=== PATIENT | female | born 1970 | race Caucasian/White ===

== ENCOUNTER 2019-02-13 22:01 | Emergency (ER) | payer BC, OTHER ==
[~2019-02-13] VITALS: Ht 162.6 cm; Wt 92.5 kg
--- OUTSIDE RECORDS SUMMARY | 2019-02-13 22:07 | XMS REPORT | Continuity of Care Document ---
Author Organization Unknown Address Unknown Phone Unavailable Allergies There is no data. Medications There is no data. Problems There is no data. Procedures There is no data. Results Test Result Range LIPID PANEL - 11/14/18 08:47 CHOLESTEROL, TOTAL 188 mg/dL <200 HDL CHOLESTEROL 73 mg/dL >50 TRIGLYCERIDES 114 mg/dL <150 LDL-CHOLESTEROL 94 mg/dL (calc) NRG CHOL/HDLC RATIO 2.6 (calc) <5.0 NON HDL CHOLESTEROL 115 mg/dL (calc) <130 CULTURE, THROAT - 11/20/18 18:26 CULTURE, THROAT SEE NOTE NRG Encounters ACCT No. Visit Date/Time Discharge Status Pt. Type Provider Facility Loc./Unit Complaint [id number] 01/19/2019 11:50:00 01/19/2019 23:59:59 [facility] Outpatient [facility] [id number] 11/20/2018 17:10:00 Document Registration [id number] 11/14/2018 08:30:00 Document Registration
--- OUTSIDE RECORDS SUMMARY | 2019-02-13 22:07 | XMS REPORT ---
Author Author INGE BEAULIEU [facility] Address [address] [place] [address] Care Team Providers Care Medication Administration Professional Name Role Phone INGE BEAULIEU Unavailable PROBLEMS Type Condition ICD9-CM Code [id number] Code Onset Dates Condition Status SNOMED Code Problem Osteoarthritis of left knee M17.12 Oct, 0 888582218 Problem Allergic rhinitis due to other allergen J30.89 0 13974230 Problem Tobacco use Z72.0 Mar, 0 464319806 Problem Esophageal reflux K21.9 0 072995901 Problem Headache R51 Active 84083171 Problem Osteoarthritis of right knee M17.11 Mar, 0 092363947 Problem Allergic rhinitis J30.9 Active 19666909 Problem Headache(784.0) R51 Jul, 0 46370463 Problem Environmental allergies Z91.09 Jul, 0 652113347 Problem Anxiety F41.9 Active 11106871 Problem Obesity (BMI 30.0-34.9) E66.9 Active [id number] Problem Obesity (BMI 30-39.9) E66.9 Active 082608666 ALLERGIES Substance Reaction Event Type Date Status Bactroban Stomach aches Non Drug Allergy Sep, Active Vicks itch Non Drug Allergy Sep, Active Loratab itch Non Drug Allergy Sep, Active wellbutrin confusion Non Drug Allergy Sep, Active penicillin itch Non Drug Allergy Sep, Active hydrocodone itch, vomiting Non Drug Allergy Sep, Active Codeine Unknown Non Drug Allergy Sep, Active ENCOUNTERS Encounter Location Date Diagnosis [facility] [address] [address] Dec, [facility] [address] [place] [address] 12 Dec, 2018 Tick bite, initial encounter W57.XXXA and UTI symptoms R39.9 [facility] IN [facility] [address] [facility] [address] November, Allergic rhinitis J30.9 and Exposure to Streptococcal ph[facility]itis Z20.818 [facility] [address] [place] [address] November, [facility] [address] [place] [address] November, Acute pain of right shoulder M25.511 [facility] [address] [place] [address] Oct, Acute pain of right shoulder M25.511 [facility] [address] [place] [address] Oct, [facility] [address] [place] [address] Oct, Acute URI J06.9 [facility] [address] [place] [address] Oct, [facility] [address] [place] [address] Sep, Obesity (BMI 30.0-34.9) E66.9 [facility] [address] [place] [address] Sep, Obesity (BMI 30.0-34.9) E66.9 [facility] [address] [place] [address] Sep, Acute URI J06.9 [facility] [address] [place] [place] [address] Sep, Sinusitis J32.9 ; Muscle spasm M62.838 and Middle ear effusion H65.90 [facility] [address] [facility] [id number], [place] [address] Jul, [facility] [address] [facility] [id number], [place] [address] Jul, [facility] [address] [id number], [place] [address] Jun, [facility] [address] [id number], [place] [address] Jun, Left lower quadrant pain R10.32 and Constipation, unspecified constipation type K59.00 [facility] [address] [facility] [id number], [place] [address] November, [facility] [address] [facility] [id number], [place] [address] Aug, IMMUNIZATIONS No Known Immunizations SOCIAL HISTORY Never Assessed REASON FOR VISIT congestion, sore throat and her chest hurts when she takes a deep breath. This started a couple of days ago.--PABLO Thakur PLAN OF CARE Activity Details Follow Up if not improving with PCP or reg follow up Reason: VITAL SIGNS Height 65 in 2018-09-21 Weight 217 lbs 2018-09-21 Temperature 98.1 degrees Fahrenheit 2018-09-21 Heart Rate 72 bpm 2018-09-21 Respiratory Rate 18 2018-09-21 BMI 36.11 kg/m2 2018-09-21 Blood pressure systolic 140 mmHg 2018-09-21 Blood pressure diastolic 90 mmHg 2018-09-21 MEDICATIONS Medication Instructions Dosage Frequency Start Date End Date Duration Status Doxycycline Hyclate 100 MG Orally Twice a day 1 capsule 12h Sep, 7 days Active Cyclobenzaprine HCl 10 MG Orally Three times a day as needed 1 tablet as needed Sep, 10 days Active PredniSONE 20 MG Orally BID 1 tablet 12h Sep, 5 days Active RESULTS No Results PROCEDURES No Known procedures INSTRUCTIONS MEDICATIONS ADMINISTERED No Known Medications MEDICAL (GENERAL) HISTORY Type Description Date Medical History Anxiety Medical History Environmental allergies Medical History Esophageal reflux Medical History Obesity (BMI 30-39.9) Medical History Headache Medical History Osteoarthritis of left knee Medical History Osteoarthritis of right knee Surgical History Hysterectomy 2006 Surgical History cholecystectomy 2002 Surgical History Left ankle ligament repair 1986 Surgical History Left knee repair 2008, 2012 Surgical History carpal tunnel Surgical History cyst in sinuses removed Hospitalization History surgeries Hospitalization History childbirth x3
--- OUTSIDE RECORDS SUMMARY | 2019-02-13 22:07 | XMS REPORT ---
Author Author CECILIA LANDRY [facility] Address [address] [place] [address] Care Team Providers Care Workforce Consultant Name Role Phone CECILIA LANDRY Unavailable PROBLEMS Type Condition ICD9-CM Code QIJ64-CE Code Onset Dates Condition Status SNOMED Code Problem Constipation, unspecified constipation type K59.00 Active 25700004 ALLERGIES Substance Reaction Event Type Date Status wellbutrin confusion Non Drug Allergy Jun, Active penicillin itch Non Drug Allergy Jun, Active hydrocodone itch, vomiting Non Drug Allergy Jun, Active Codeine Unknown Non Drug Allergy Jun, Active Bactroban Stomach aches Non Drug Allergy Jun, Active Vicks itch Non Drug Allergy Jun, Active Loratab itch Non Drug Allergy Jun, Active ENCOUNTERS Encounter Location Date Diagnosis [facility] [id number] [place] [address] Jun, Left lower quadrant pain R10.32 and Constipation, unspecified constipation type K59.00 IMMUNIZATIONS No Known Immunizations SOCIAL HISTORY Never Assessed REASON FOR VISIT Intermittent LLQ abdominal pain that radiates to the navel x 3 days. Pain rated a 10 at its worst. Pt was told several days ago she has a bowel blockage and b priti taking stool softener [facility]. [facility] PLAN OF CARE Activity Details Follow Up prn Reason: VITAL SIGNS Height 65 in 2018-07-02 Weight 203.2 lbs 2018-07-02 Temperature 97.5 degrees Fahrenheit 2018-07-02 Heart Rate 80 bpm 2018-07-02 Respiratory Rate 20 2018-07-02 BMI 33.81 kg/m2 2018-07-02 Blood pressure systolic 110 mmHg 2018-07-02 Blood pressure diastolic 74 mmHg 2018-07-02 MEDICATIONS Medication Instructions Dosage Frequency Start Date End Date Duration Status Metronidazole 500 MG Orally every 8 hrs 1 tablet 8h 10 day(s) Active Stool Softener Active Levofloxacin 750 MG Orally Once a day 1 tablet 24h 10 day(s) Active RESULTS Name Result Date Reference Range Xray : Abdomen 2v (Upright and KUB) - IN HOUSE 2018-07-02 PROCEDURES Procedure Date Ordered Result Body Site X-RAY EXAM ABDOMEN 2 VIEWS Jul 02, 2018 INSTRUCTIONS MEDICATIONS ADMINISTERED No Known Medications MEDICAL (GENERAL) HISTORY Type Description Date Medical History Bowel obstruction diagnosed 3 days ago Surgical History Hysterectomy 2006 Surgical History cholecystectomy 2002 Surgical History Left ankle ligament repair 1986 Surgical History Left knee repair 2008, 2012
--- NOTE | 2019-02-13 22:34 | ED GI ---
General Chief Complaint: Abdominal/GI Problems Stated Complaint: ABD PAIN, DIARRHEA, NAUSEA Source of Information: Patient Exam Limitations: No Limitations History of Present Illness Date Seen by Provider: Feb 13, 2019 Time Seen by Provider: 22:28 Initial Comments This 13-year-old lady states that she had severe stomach cramps about half an hour ago which doubled her over. She is also been having some diarrhea and nausea. She presents now for evaluation Timing/Duration: 1 Hour Severity/Quality: Severe, Cramping, Stabbing Location: Epigastric Radiation: No Radiation, RUQ Activities at Onset: None Associated Symptoms: Nausea/Vomiting (patient has also had diarrhea.) Allergies and Home Medications Patient Home Medication List Home Medication List Reviewed: Yes Review of Systems Review of Systems Constitutional: no symptoms reported Respiratory: No Symptoms Reported, See HPI Cardiovascular: No Symptoms Reported, See HPI Gastrointestinal: No Symptoms Reported, See HPI Genitourinary: No Symptoms Reported, See HPI Musculoskeletal: no symptoms reported Psychiatric/Neurological: No Symptoms Reported, See HPI Endocrine: No Symptoms Reported, See HPI Hematologic/Lymphatic: No Symptoms Reported, See HPI Past Pyapjke-Jrojti-Wodvkn Hx Patient Social History Alcohol Use: Denies Use Recreational Drug Use: No Smoking Status: Current Everyday Smoker Type Used: Electronic/Vapor 2nd Hand Smoke Exposure: No Recent Foreign Travel: No Contact w/Someone Who Travel: No Recent Hopitalizations: No Physical Abuse: No Sexual Abuse: No Mistreated: No Fear: No Seasonal Allergies Seasonal Allergies: No Past Medical History Surgeries: Yes Gallbladder, Hysterectomy, Orthopedic Respiratory: No Cardiac: No Neurological: No Genitourinary: No Gastrointestinal: No Musculoskeletal: No Endocrine: No HEENT: No Cancer: No Psychosocial: No Integumentary: No Blood Disorders: No Physical Exam Vital Signs Capillary Refill : Height/Weight/BMI Height: '" Weight: lbs. oz. kg; BMI Method: General Appearance: WD/WN, no apparent distress HEENT: PERRL/EOMI, normal ENT inspection, TMs normal, pharynx normal Neck: non-tender, full range of motion, supple, normal inspection Respiratory: chest non-tender, lungs clear, normal breath sounds, no respiratory distress, no accessory muscle use Cardiovascular: normal peripheral pulses, regular rate, rhythm, no edema, no gallop, no JVD, no murmur Peripheral Pulses: 2+ Carotid (R), 2+ Carotid (L), 2+ Femoral (R), 2+ Femoral (L), 2+ Dorsalis Pedis (R), 2+ Left Dors-Pedis (L), 2+ Radial Pulses (R), 2+ Radial Pulses (L) Gastrointestinal: normal bowel sounds, non tender, soft, no organomegaly, no pulsatile mass Rectal: normal exam Genital/Rectal: normal genital exam Extremities: normal range of motion, non-tender, normal inspection, no pedal edema, no calf tenderness, normal capillary refill, pelvis stable Pelvic: normal external exam, normal adnexa, no cerv. motion tender, no masses, discharge Neurologic/Psychiatric: [employer] II-XII nml as tested, no motor/sensory deficits, alert, normal mood/affect, oriented x 3 Skin: normal color, warm/dry Lymphatic: no adenopathy Departure Impression Primary Impression: Epigastric pain Additional Impressions: Diarrhea Nausea and vomiting Disposition: HOME, SELF-CARE Condition: Stable Departure-Patient Inst. Referrals: SELFREVA MD (PCP) Primary Care Physician Patient Instructions: Peptic Ulcers (DC), Dyspepsia, Viral Gastroenteritis, Adult (DC), Acid Reflux (Gastroesophageal Reflux Disease) in Adults, Ulcer and Gastritis Diet Scripts Ondansetron (Ondansetron Odt) 4 Mg Tab.rapdis 4 MG PO Q8H PRN for NAUSEA/VOMITING-1ST LINE, #10 TAB Prov: RADHA ROBIN MD 02/13/19 Rabeprazole Sodium (Aciphex) 20 Mg Tablet.dr 20 MG PO DAILY for 30 Days, #30 TAB Prov: RADHA ROBIN MD 02/13/19 RADHA ROBIN MD Feb 13, 2019 22:34
[2019-02-13] MEDS ORDERED: ONDA4TAB11 PO (22:38)
[2019-02-13] MEDS ORDERED: NF-ACI30T PO (22:38)
[2019-02-13] MEDS ORDERED: ONDANSETRON 4 MG (ZOFRAN) ORAL DISSOLVE TAB PO STA (22:42)
[2019-02-13] MEDS ORDERED: PANTOPRAZOLE 40 MG (PROTONIX) TAB PO ONE (22:45)
[2019-02-13 23:12] VITALS: BP 129/62
== END 2019-02-13 23:13 | disposition home or self-care (01) ==
LOC: ER FS 22:03
DX: R19.7 Diarrhea, unspecified (principal); R11.2 Nausea with vomiting, unspecified; F17.290 Nicotine dependence, other tobacco product, uncomplicated; Z90.710 Acquired absence of both cervix and uterus
CPT/HCPCS: 99283

== ENCOUNTER 2019-03-04 18:40 | Emergency (ER) | payer BC ==
[~2019-03-04] VITALS: Ht 162.6 cm; Wt 97.1 kg
[~2019-03-04 18:40] MED LIST: NF-ACI30T PO; ONDA4TAB11 PO
--- NOTE | 2019-03-04 19:36 | ED Lower Extremity ---
General Chief Complaint: Lower Extremity Stated Complaint: RT LEG SWELLING/PAIN Nursing Triage Note: pt co right leg pain and swelling x 4 days. pt states she took 2 ibuprofen and 1 tylenol at 10 am. pt with no known injury Nursing Sepsis Screen: No Definite Risk Source: patient, family History of Present Illness Date Seen by Provider: Mar 04, 2019 Time Seen by Provider: 19:35 Initial Comments 48-year-old female presenting with complaints of right leg and swelling 4 days. She's also been running a fever. She has been having a cough when she's been speaking at work as well as getting short of breath with exertion over the last 2 days. She has had multiple procedures with her right knee and ankle. She has partially torn Achilles tendon on the right as well as severe arthritis on the right knee. She has been having increased pain and swelling to the leg that has been worse in the last few days. She had tried to go to urgent care tonight but they told her that she had to be seen in the emergency department. With her tenderness and increased warmth and swelling to the right leg she states that this extends up into her hip as well. She denies any new injury to the leg. Allergies and Home Medications Allergies Coded Allergies: Penicillins (Verified Allergy, Unknown, 02/13/19) acetaminophen (Verified Allergy, Unknown, 02/13/19) chlorpheniramine (Verified Allergy, Unknown, 02/13/19) dextromethorphan (Verified Allergy, Unknown, 02/13/19) guaifenesin (Verified Allergy, Unknown, 02/13/19) hydrocodone (Verified Allergy, Unknown, 02/13/19) phenylpropanolamine (Verified Allergy, Unknown, 02/13/19) pseudoephedrine (Verified Allergy, Unknown, 02/13/19) Home Medications Ondansetron 4 Mg Tab.rapdis, 4 MG PO Q8H PRN for NAUSEA/VOMITING-1ST LINE Prescribed by: MARLI ROBIN MD on 02/13/192237 Rabeprazole Sodium 20 Mg Tablet.dr, 20 MG PO DAILY Prescribed by: MARLI ROBIN MD on 02/13/192237 Patient Home Medication List Home Medication List Reviewed: Yes Review of Systems Constitutional: chills, fever EENTM: ear pain, hoarseness Respiratory: cough, dyspnea on exertion Cardiovascular: No chest pain Gastrointestinal: no symptoms reported Genitourinary: no symptoms reported Musculoskeletal: muscle pain (right leg and calf) Skin: change in color (with mild redness around her knee) Psychiatric/Neurological: Denies Numbness, Denies Paresthesia, Denies Weakness Past Cginfvs-Rkxwmd-Gavwlg Hx Past Med/Social Hx: Reviewed Nursing Past Med/Soc Hx Patient Social History Alcohol Use: Occasionally Uses Recreational Drug Use: No Smoking Status: Former Smoker Type Used: Electronic/Vapor 2nd Hand Smoke Exposure: No Recent Foreign Travel: No Contact w/Someone Who Travel: No Recent Infectious Disease Expo: No Recent Hopitalizations: No Physical Abuse: No Sexual Abuse: No Mistreated: No Fear: No Seasonal Allergies Seasonal Allergies: No Past Medical History Surgeries: Yes Gallbladder, Hysterectomy, Orthopedic Respiratory: No Cardiac: No Neurological: No Genitourinary: No Gastrointestinal: No Musculoskeletal: Yes Arthritis Endocrine: No HEENT: No Cancer: No Psychosocial: No Integumentary: No Blood Disorders: No Physical Exam Vital Signs Vital Signs - First Documented 03/04/19 19:10 Temp 101.9 Pulse 83 Resp 20 B/P (MAP) 131/71 (91) Pulse Ox 98 O2 Delivery Room Air Capillary Refill : Less Than 3 Seconds Height, Weight, BMI Height: 5'4.00" Weight: 214lbs. oz. 97.302734sr; BMI Method:Stated General Appearance: WD/WN, no apparent distress HEENT: PERRL/EOMI, pharynx normal; No photophobia; TM abnormal (R) (TM is clear but there is a trace amount of clear fluid behind the TM), TM abnormal (L) (TM is clear but there is a trace amount of clear fluid behind the TM), pharyngeal erythema; No tonsillar exudate Neck: non-tender, full range of motion, supple, normal inspection Cardiovascular: normal peripheral pulses, regular rate, rhythm, no murmur Respiratory: chest non-tender, lungs clear, normal breath sounds, no respiratory distress, no accessory muscle use Gastrointestinal: normal bowel sounds, non tender, soft, no pulsatile mass Back: no CVA tenderness Legs: right leg pain, right leg soft tissue tenderness, right leg swelling Knees: right knee pain, right knee soft tissue tenderness, right knee swelling Ankles: right ankle pain, right ankle soft tissue tenderness, right ankle swelling Neurologic/Tendon: normal sensation, normal motor functions, normal tendon functions Neurologic/Psychiatric: cloud developer II-XII nml as tested, no motor/sensory deficits, alert, normal mood/affect, oriented x 3 Skin: warm/dry, other (mild erythema around her right knee) Lymphatic: no adenopathy Progress/Results/Core Measures Results/Orders Lab Results Laboratory Tests Test 03/04/19 20:06 03/04/19 20:10 Range/Units Urine Color YELLOW Urine Clarity CLEAR Urine pH 7.5 5-9 Urine Specific [place] 1.010 L 1.016-1.022 Urine Protein NEGATIVE NEGATIVE Urine Glucose (UA) NEGATIVE NEGATIVE Urine Ketones NEGATIVE NEGATIVE Urine Nitrite NEGATIVE NEGATIVE Urine Bilirubin NEGATIVE NEGATIVE Urine Urobilinogen 0.2 NORMAL MG/DL Urine Leukocyte Esterase NEGATIVE NEGATIVE Urine RBC (Auto) NEGATIVE NEGATIVE Urine RBC 0-2 /HPF Urine WBC 0-2 /HPF Urine Squamous Epithelial Cells 0-2 /HPF Urine Crystals NONE /LPF Urine Bacteria TRACE /HPF Urine Casts NONE /LPF Urine Mucus NONE /LPF Urine Culture Indicated NO White Blood Count 10.6 4.3-11.0 10^3/uL Red Blood Count 4.21 L 4.35-5.85 10^6/uL Hemoglobin 12.7 11.5-16.0 G/DL Hematocrit 39 35-52 % Mean Corpuscular Volume 93 80-99 FL Mean Corpuscular Hemoglobin 30 25-34 PG Mean Corpuscular Hemoglobin Concent 32 32-36 G/DL Red Cell Distribution Width 13.3 10.0-14.5 % Platelet Count 241 130-400 10^3/uL Mean Platelet Volume 10.2 7.4-10.4 FL Neutrophils (%) (Auto) 80 H 42-75 % Lymphocytes (%) (Auto) 13 12-44 % Monocytes (%) (Auto) 6 0-12 % Eosinophils (%) (Auto) 1 0-10 % Basophils (%) (Auto) 0 0-10 % Neutrophils # (Auto) 8.5 H 1.8-7.8 X 10^3 Lymphocytes # (Auto) 1.3 1.0-4.0 X 10^3 Monocytes # (Auto) 0.6 0.0-1.0 X 10^3 Eosinophils # (Auto) 0.1 0.0-0.3 10^3/uL Basophils # (Auto) 0.0 0.0-0.1 10^3/uL Sodium Level 140 135-145 MMOL/L Potassium Level 4.2 3.6-5.0 MMOL/L Chloride Level 99 98-107 MMOL/L Carbon Dioxide Level 25 21-32 MMOL/L Anion Gap 16 H 5-14 MMOL/L Blood Urea Nitrogen 12 7-18 MG/DL Creatinine 0.85 0.60-1.30 MG/DL Estimat Glomerular Filtration Rate > 60 BUN/Creatinine Ratio 14 Glucose Level 105 70-105 MG/DL Lactic Acid Level 0.94 0.50-2.00 MMOL/L Calcium Level 9.5 8.5-10.1 MG/DL Corrected Calcium 8.5-10.1 MG/DL Total Bilirubin 0.3 0.1-1.0 MG/DL Aspartate Amino Transf (AST/SGOT) 16 5-34 U/L Alanine Aminotransferase (ALT/SGPT) 14 0-55 U/L Alkaline Phosphatase 78 40-136 U/L Total Protein 7.5 6.4-8.2 GM/DL Albumin 4.6 H 3.2-4.5 GM/DL My Orders Orders - GEORGINA NAVARRO MD Cbc With Automated Diff (03/04/19 19:59) Comprehensive Metabolic Panel (03/04/19 19:59) Blood Culture (03/04/19 19:59) Ua Culture If Indicated (03/04/19 19:59) Ed Iv/Invasive Line Start (03/04/19 19:59) Lactic Acid Analyzer (03/04/19 19:59) Ct Angio Chest W (03/04/19 20:01) Iohexol Injection (Omnipaque 350 Mg/Ml 1 (03/04/19 20:30) Received Contrast (Hold Metformin- Contr (03/04/19 20:30) Ns (Ivpb) (Sodium Chloride 0.9% Ivpb Bag (03/04/19 20:30) Sodium Chloride Flush (Catheter Flush Sy (03/04/19 20:30) Medications Given in ED Current Medications Medications Dose Ordered Sig/Jasbir Route Start Time Stop Time Status Last Admin Dose Admin Iohexol 125 ml ONCE ONCE IV 03/04/19 20:30 03/04/19 20:33 DC 03/04/19 20:58 125 ML Sodium Chloride 10 ml NEEDED PRN IV 03/04/19 20:30 03/04/19 20:58 10 ML Sodium Chloride 100 ml ONCE ONCE IV 03/04/19 20:30 03/04/19 20:33 DC 03/04/19 20:58 40 ML Vital Signs/I&O 03/04/19 19:10 Temp 101.9 Pulse 83 Resp 20 B/P (MAP) 131/71 (91) Pulse Ox 98 O2 Delivery Room Air Blood Pressure Mean: 91 Progress Progress Note #1: Progress Note With the patient complaining of increased pain to the right leg extending up into her hip and having swelling and some mild redness there is concerned that she could be having DVT or blood clot causing this. She could also be having some cellulitis but there is no indication of a break in the skin or source for her to get an infection. With her complaining of being short of breath with exertion and having coughing getting choked when trying to talk on the phone with obtain a CT scan of her chest to evaluate for possible PE. We will also obtain basic blood work and cultures as well as a lactic acid to rule out sepsis since she has elevated temperature and potential source of infection with her leg and With her cough and shortness of breath. Patient wanted to take her own medication for fever control. Progress Note #2: Progress Note Labs show a normal CBC and chemistry. She did not have an elevated white blood cell count or lactic acid. Her urinalysis was normal as well. Her CT scan finally came back showing no acute pulmonary emboli. She had no infiltrate or acute process in the chest. I did review with her that these findings at least rule out some of the more severe problems that could be causing her symptoms. I cannot explain her problems with her leg And it may just be arthritis causing some of her pain however that would not account for all of her swelling for the pain going up into her hip. She may still need an ultrasound of that leg but I would not have a PT his pain that tonight. She would need to get that done dur ing the day [place] in [place]. I advised her if she still had pain to get that done or see her regular provider during the day. Especially if she continues to have shortness of breath and cough that would be important to get that done. Diagnostic Imaging Diagonstic Imaging: CT Plain Films/CT/US/NM/MRI: chest Comments NAME: GENESIS KNUTSON [facility] REC#: [id number] PT STATUS: REG ER : 1970 PHYSICIAN: GEORGINA NAVARRO MD ADMIT DATE: 03/04/19/ER FS Signed Date of Exam:03/04/19 CT ANGIO CHEST W PROCEDURE: CT angiography of the chest with contrast. TECHNIQUE: Multiple contiguous axial images were obtained through the chest after uneventful bolus administration of intravenous contrast. 3D reconstructed CTA MIP acquisitions were also performed. Auto Exposure Controls were utilized during the CT exam to meet ALARA standards for radiation dose reduction. INDICATION: Chest pain, shortness of breath, pulmonary embolism COMPARISON: None FINDINGS: The heart is normal. There is no pericardial effusion. The visualized pulmonary arteries and aorta are grossly normal. There is no lymphadenopathy. The lungs are clear. There is no infiltrate. No pneumothorax is seen. The gallbladder surgically absent. Osseous structures are unremarkable. IMPRESSION: Negative CT angio chest. Dictated by: Dictated on workstation # [id number] Dict: 03/04/192150 Trans: 03/04/192158 [facility] [id number] Interpreted by: MIGUEL POST Electronically signed by: MIGUEL POST 03/04/192158 Departure Impression Primary Impression: Pain and swelling of right lower extremity Additional Impressions: Cough in adult patient Short of breath on exertion Fever in adult Disposition: 01 HOME, SELF-CARE Condition: Stable Departure-Patient Inst. Decision time for Depature: 22:36 Referrals: REVA CARMEN MD (PCP/Family) Primary Care Physician Patient Instructions: Cough, Adult (DC), Fever, Adult (DC), Knee Pain (DC), Shortness of Breath (Dyspnea) (DC) Add. Discharge Instructions: Check back with Dr. Carmen for continued pain and symptoms. If you are not improving then you may need an ultrasound of your leg or to have other testing down with the clinic. Use Acetaminophen and Ibuprofen for fever and pain All discharge instructions reviewed with patient and/or family. Voiced under standing. GEORGINA NAVARRO MD Mar 04, 2019 19:35
[2019-03-04 20:21] LABS: HEMATOCRIT 39 % (35-52); HEMOGLOBIN 12.7 G/DL (11.5-16.0); MEAN CORPUSCULAR HEMOGLOBIN 30 PG (25-34); MEAN CORPUSCULAR HGB CONC 32 G/DL (32-36); MEAN CORPUSCULAR VOLUME 93 FL (80-99); MEAN PLATELET VOLUME 10.2 FL (7.4-10.4); PLATELET COUNT 241 10^3/uL (130-400); RED CELL DISTRIBUTION WIDTH 13.3 % (10.0-14.5); WHITE BLOOD COUNT 10.6 10^3/uL (4.3-11.0)
[2019-03-04 20:22] LABS: BASOPHILS % (AUTO) 0 % (0-10); EOSINOPHILS # (AUTO) 0.1 10^3/uL (0.0-0.3); EOSINOPHILS % (AUTO) 1 % (0-10); LYMPHOCYTES # (AUTO) 1.3 X 10^3 (1.0-4.0); LYMPHOCYTES % (AUTO) 13 % (12-44); MONOCYTES # (AUTO) 0.6 X 10^3 (0.0-1.0); MONOCYTES % (AUTO) 6 % (0-12); NEUTROPHILS # (AUTO) 8.5 X 10^3 (1.8-7.8); NEUTROPHILS % (AUTO) 80 % (42-75)
[2019-03-04 20:23] LABS: CLARITY,URINE CLEAR; COLOR,URINE YELLOW; PH,URINE 7.5 (5-9)
[2019-03-04 20:25] LABS: BACTERIA,URINE TRACE /HPF; BILIRUBIN,URINE NEGATIVE (NEGATIVE); GLUCOSE, URINE (UA) NEGATIVE (NEGATIVE); KETONES,URINE NEGATIVE (NEGATIVE); LEUKOCYTE ESTERASE ,URINE NEGATIVE (NEGATIVE); NITRITE,URINE NEGATIVE (NEGATIVE); PROTEIN,URINE NEGATIVE (NEGATIVE); RBC,URINE 0-2 /HPF; SQUAMOUS EPITHELIAL CELL,UR 0-2 /HPF; UROBILINOGEN,URINE 0.2 MG/DL (NORMAL); WBC,URINE 0-2 /HPF
[2019-03-04] MEDS ORDERED: CATHETER FLUSH 10 ML SYR IV PRN (20:30)
[2019-03-04] MEDS ORDERED: HOLD METFORMIN - RECEIVED CONTRAST 20 ML VIAL IV SCH (20:30)
[2019-03-04] MEDS ORDERED: NS 100 ML (IVPB) BAG IV ONE (20:30)
[2019-03-04] MEDS ORDERED: IOHEXOL 350 MG/ML 150 ML (OMNIPAQUE 350) VIAL IV ONE (20:30)
[2019-03-04 20:41] LABS: ALANINE AMINOTRANSFERASE 14 U/L (0-55); ALKALINE PHOSPHATASE 78 U/L (40-136); BILIRUBIN,TOTAL 0.3 MG/DL (0.1-1.0); BUN/CREATININE RATIO 14; CALCIUM 9.5 MG/DL (8.5-10.1); CARBON DIOXIDE 25 MMOL/L (21-32); CHLORIDE 99 MMOL/L (98-107); CREATININE SERUM 0.85 MG/DL (0.60-1.30); GFR ESTIMATED > 60; GLUCOSE 105 MG/DL (70-105); POTASSIUM 4.2 MMOL/L (3.6-5.0); SODIUM 140 MMOL/L (135-145); TOTAL PROTEIN 7.5 GM/DL (6.4-8.2)
[2019-03-04 20:42] LABS: ALBUMIN 4.6 GM/DL (3.2-4.5)
--- NOTE | 2019-03-04 21:59 | Diagnostic Imaging Report ---
PROCEDURE: CT angiography of the chest with contrast. TECHNIQUE: Multiple contiguous axial images were obtained through the chest after uneventful bolus administration of intravenous contrast. 3D reconstructed CTA MIP acquisitions were also performed. Auto Exposure Controls were utilized during the CT exam to meet ALARA standards for radiation dose reduction. INDICATION: Chest pain, shortness of breath, pulmonary embolism COMPARISON: None FINDINGS: The heart is normal. There is no pericardial effusion. The visualized pulmonary arteries and aorta are grossly normal. There is no lymphadenopathy. The lungs are clear. There is no infiltrate. No pneumothorax is seen. The gallbladder surgically absent. Osseous structures are unremarkable. IMPRESSION: Negative CT angio chest. Dictated by: Dictated on workstation # [id number]
[2019-03-04 22:40] VITALS: BP 131/71
--- NOTE | 2019-03-04 22:41 | NUR ---
pt left before dc vitals could be taken
== END 2019-03-04 22:40 | disposition home or self-care (01) ==
LOC: EDUNIT# 18:40 → ER FS 18:41
DX: M79.89 Other specified soft tissue disorders (principal); R05 Cough; R06.02 Shortness of breath; R50.9 Fever, unspecified; M17.11 Unilateral primary osteoarthritis, right knee; Z88.0 Allergy status to penicillin; Z88.5 Allergy status to narcotic agent; Z88.8 Allergy status to other drugs, medicaments and biological substances; Z88.6 Allergy status to analgesic agent; Z87.891 Personal history of nicotine dependence; Z90.710 Acquired absence of both cervix and uterus
CPT/HCPCS: 36415; 71275; 80053; 81000; 83605; 85025; 87040

== ENCOUNTER → 2019-05-01 | Outpatient (CLI) | payer BC ==
--- NOTE | 2019-05-01 11:06 | Diagnostic Imaging Report ---
INDICATION: Right upper quadrant abdominal pain for one week. Time of exam 9:50 AM There are surgical clips in the gallbladder fossa. Bowel gas pattern is nonobstructed. No pathologic calcifications are seen. IMPRESSION: No acute abnormality is detected. Dictated by: Dictated on workstation # [id number]
== END ==
LOC: RAD FS 09:34
PROVIDERS: ATTEND Family Medicine
DX: R10.11 Right upper quadrant pain (principal); Z98.890 Other specified postprocedural states
CPT/HCPCS: 74018

== ENCOUNTER → 2019-07-30 | Outpatient (CLI) | payer BC ==
--- NOTE | 2019-07-30 15:58 | Diagnostic Imaging Report ---
INDICATION: Fall and left knee pain. TIME OF EXAM: 3:26 p.m. FINDINGS: Three views of the left knee were obtained. Alignment is normal. There is medial compartmental degenerative change with significant joint space narrowing and marginal spurring. There is spurring of the tibial spines. Lateral compartment is fairly well maintained. There is milder patellofemoral compartmental degenerative change. No fracture, dislocation or effusion is seen. IMPRESSION: Degenerative changes. No acute bony abnormality is detected. Dictated by: Dictated on workstation # [id number]
== END ==
LOC: RAD FS 15:04
PROVIDERS: ATTEND Nurse Practitioner
DX: M17.12 Unilateral primary osteoarthritis, left knee (principal)
CPT/HCPCS: 73562

== ENCOUNTER → 2019-09-01 | Outpatient (CLI) | payer BC ==
--- NOTE | 2019-09-01 16:28 | Diagnostic Imaging Report ---
INDICATION: Chest pain. FINDINGS: Heart size is normal. Lungs are clear. There is no pleural effusion or pneumothorax. Mediastinum is unremarkable. IMPRESSION: No acute cardiopulmonary abnormality. Dictated by: Dictated on workstation # [id number]
== END ==
LOC: RAD FS 16:12
PROVIDERS: ATTEND Nurse Practitioner Family
DX: R10.13 Epigastric pain (principal)
CPT/HCPCS: 71046

== ENCOUNTER → 2020-03-04 | Outpatient (CLI) | payer BC ==
--- NOTE | 2020-03-04 17:30 | Diagnostic Imaging Report ---
INDICATION: Right hip pain x two weeks. EXAMINATION: Two views of the right hip were obtained. FINDINGS: There is joint space narrowing with some synovial pitting and osteophytes forming at the margins of the articular surfaces. There is no fracture or dislocation. IMPRESSION: Moderate degenerative changes of the right hip. Dictated by: Dictated on workstation # [id number]
== END ==
LOC: RAD FS 17:13
PROVIDERS: ATTEND Nurse Practitioner
DX: M16.11 Unilateral primary osteoarthritis, right hip (principal)
CPT/HCPCS: 73502